=== PATIENT | female | born 1945 | race Two or more races ===

== ENCOUNTER → 2017-11-03 06:42 | Outpatient (CLI) | payer OTHER | END | disposition home or self-care (01) | LOC: LAB 06:42 | DX: N39.0 Urinary tract infection, site not specified (principal); M19.90 Unspecified osteoarthritis, unspecified site; M06.4 Inflammatory polyarthropathy ==

== ENCOUNTER 2017-11-03 13:45 | Outpatient (CLI) | payer OTHER | END 2017-11-03 13:51 | disposition home or self-care (01) | LOC: NUCLEAR 13:45 | DX: M81.0 Age-related osteoporosis without current pathological fracture (principal) ==

== ENCOUNTER → 2017-11-07 13:41 | Outpatient (CLI) | payer OTHER | END | disposition home or self-care (01) | LOC: LAB 13:41 | DX: R10.2 Pelvic and perineal pain (principal); Z51.81 Encounter for therapeutic drug level monitoring ==

== ENCOUNTER 2017-11-08 09:50 | Outpatient (CLI) | payer OTHER | END 2017-11-08 10:07 | disposition home or self-care (01) | LOC: TOM 09:50 | DX: R10.84 Generalized abdominal pain (principal); K57.30 Diverticulosis of large intestine without perforation or abscess without bleeding | CPT/HCPCS: 74177; Q9965 ==

== ENCOUNTER → 2017-11-15 | Outpatient (CLI) | payer OTHER | END | disposition home or self-care (01) | LOC: MAMO-SONO 12:30 | DX: Z12.31 Encounter for screening mammogram for malignant neoplasm of breast (principal); Z87.898 Personal history of other specified conditions; N60.11 Diffuse cystic mastopathy of right breast; N60.12 Diffuse cystic mastopathy of left breast ==

== ENCOUNTER 2017-11-25 10:31 | Outpatient (CLI) | payer OTHER | END 2017-11-25 15:56 | disposition home or self-care (01) | LOC: SONOGRAMA 10:31 | DX: R10.2 Pelvic and perineal pain (principal) ==

== ENCOUNTER → 2017-11-29 06:43 | Outpatient (CLI) | payer OTHER | END | disposition home or self-care (01) | LOC: LAB 06:43 | DX: M81.0 Age-related osteoporosis without current pathological fracture (principal) ==

== ENCOUNTER 2017-12-17 13:10 | Emergency (ER) | payer OTHER ==
[~2017-12-17] VITALS: Ht 149.9 cm; Wt 71.7 kg
[2017-12-17] MEDS ORDERED: OXYCODON-ACETA1 EACH (13:48)
[2017-12-17] MEDS ORDERED: SYNTHROID88 MCG (13:48)
[2017-12-17] MEDS ORDERED: HYZAAR 100-251 EACH (13:48)
[2017-12-17] MEDS ORDERED: TRAMADOL HCL50 MG (13:49)
[2017-12-17] MEDS ORDERED: GABAPENTIN800 MG (13:49)
== END 2017-12-17 17:43 | disposition home or self-care (01) ==
LOC: ER 13:10
DX: K29.60 Other gastritis without bleeding (principal); T37.5X5A Adverse effect of antiviral drugs, initial encounter; T40.4X5A Adverse effect of other synthetic narcotics, initial encounter; T39.1X5A Adverse effect of 4-Aminophenol derivatives, initial encounter; T42.6X5A Adverse effect of other antiepileptic and sedative-hypnotic drugs, initial encounter; Y92.89 Other specified places as the place of occurrence of the external cause

== ENCOUNTER 2018-01-16 08:12 | Day surgery (SDC) | payer OTHER ==
[~2018-01-16 08:12] MED LIST: GABAPENTIN800 MG; HYZAAR 100-251 EACH; OXYCODON-ACETA1 EACH; SYNTHROID88 MCG; TRAMADOL HCL50 MG
[2018-01-16] MEDS ORDERED: NAPROXEN SODIU550 M1 PO (13:38)
== END 2018-01-16 17:05 | disposition home or self-care (01) ==
LOC: CIR.AMB 08:12
DX: N84.0 Polyp of corpus uteri (principal)

== ENCOUNTER → 2019-03-23 | Outpatient (CLI) | payer OTHER ==
[~2019-03-23] MED LIST changes: +NAPROXEN SODIU550 M1 PO
== END | disposition home or self-care (01) ==
LOC: SONOGRAMA 11:44
DX: M12.861 Other specific arthropathies, not elsewhere classified, right knee (principal); M12.862 Other specific arthropathies, not elsewhere classified, left knee

== ENCOUNTER 2019-03-28 06:46 | Outpatient (CLI) | payer OTHER | END 2019-03-28 15:00 | disposition home or self-care (01) | LOC: LAB 06:46 | DX: E78.2 Mixed hyperlipidemia (principal); I10 Essential (primary) hypertension; E11.9 Type 2 diabetes mellitus without complications; E03.8 Other specified hypothyroidism; M81.0 Age-related osteoporosis without current pathological fracture ==

== ENCOUNTER 2019-04-03 15:27 | Outpatient (CLI) | payer OTHER | END 2019-04-03 15:30 | disposition home or self-care (01) | LOC: LAB 15:27 | DX: J11.1 Influenza due to unidentified influenza virus with other respiratory manifestations (principal); D64.0 Hereditary sideroblastic anemia ==

== ENCOUNTER → 2019-07-05 09:25 | Outpatient (CLI) | payer OTHER | END | disposition home or self-care (01) | LOC: RAD 09:25 | DX: M12.88 Other specific arthropathies, not elsewhere classified, other specified site (principal) ==

== ENCOUNTER 2019-07-06 07:12 | Outpatient (CLI) | payer OTHER | END 2019-07-06 07:25 | disposition home or self-care (01) | LOC: LAB 07:12 | DX: I10 Essential (primary) hypertension (principal); E11.9 Type 2 diabetes mellitus without complications; E03.8 Other specified hypothyroidism; E78.2 Mixed hyperlipidemia ==

== ENCOUNTER 2019-10-23 08:46 | Outpatient (CLI) | payer OTHER | END 2019-10-23 08:55 | disposition home or self-care (01) | LOC: NUCLEAR 08:46 | PROVIDERS: ATTEND Internal Medicine Cardiovascular Disease | DX: I73.9 Peripheral vascular disease, unspecified (principal) ==

== ENCOUNTER 2019-10-24 09:00 | Outpatient (CLI) | payer OTHER | END 2019-10-24 11:44 | disposition home or self-care (01) | LOC: NUCLEAR 09:00 | PROVIDERS: ATTEND Internal Medicine Cardiovascular Disease | DX: I87.2 Venous insufficiency (chronic) (peripheral) (principal) ==

== ENCOUNTER 2019-11-13 06:58 | Outpatient (CLI) | payer OTHER | END 2019-11-13 07:03 | disposition home or self-care (01) | LOC: LAB 06:58 | PROVIDERS: ATTEND Internal Medicine Rheumatology | DX: E11.9 Type 2 diabetes mellitus without complications (principal); I10 Essential (primary) hypertension; E78.01 Familial hypercholesterolemia; E03.8 Other specified hypothyroidism ==

== ENCOUNTER → 2020-01-16 | Outpatient (CLI) | payer OTHER | END | disposition home or self-care (01) | LOC: RAD 09:46 | PROVIDERS: ATTEND Internal Medicine Cardiovascular Disease | DX: M77.32 Calcaneal spur, left foot (principal); M77.31 Calcaneal spur, right foot; M12.871 Other specific arthropathies, not elsewhere classified, right ankle and foot; M12.872 Other specific arthropathies, not elsewhere classified, left ankle and foot ==

== ENCOUNTER 2020-01-28 09:04 | Outpatient (CLI) | payer OTHER | END 2020-01-28 09:07 | disposition home or self-care (01) | LOC: RAD 09:04 | PROVIDERS: ATTEND General Practice | DX: R05 Cough (principal) ==

== ENCOUNTER 2021-01-09 08:00 | Outpatient (CLI) | payer OTHER | END 2021-01-09 08:30 | disposition home or self-care (01) | LOC: PPH VACUNA 08:00 | PROVIDERS: ATTEND Emergency Medicine Pediatric Emergency Medicine | DX: Z23 Encounter for immunization (principal) ==

== ENCOUNTER 2021-02-03 08:07 | Outpatient (CLI) | payer OTHER | END 2021-02-03 08:15 | disposition home or self-care (01) | LOC: TOM 08:07 | PROVIDERS: ATTEND Internal Medicine Cardiovascular Disease | DX: G93.89 Other specified disorders of brain (principal); R51.0 Headache with orthostatic component, not elsewhere classified; H54.8 Legal blindness, as defined in USA | CPT/HCPCS: 70470; Q9965 ==

== ENCOUNTER 2022-04-06 12:18 | Outpatient (CLI) | payer OTHER | END 2022-04-06 12:30 | disposition home or self-care (01) | LOC: MAMO-SONO 12:18 | PROVIDERS: ATTEND Obstetrics & Gynecology Gynecology | DX: N60.11 Diffuse cystic mastopathy of right breast (principal); N60.12 Diffuse cystic mastopathy of left breast ==

== ENCOUNTER 2022-07-30 07:17 | Outpatient (CLI) | payer OTHER | END 2022-07-30 07:23 | disposition home or self-care (01) | LOC: LAB 07:17 | PROVIDERS: ATTEND Internal Medicine Gastroenterology | DX: K21.00 Gastro-esophageal reflux disease with esophagitis, without bleeding (principal); K57.30 Diverticulosis of large intestine without perforation or abscess without bleeding; Z86.010 Personal history of colon polyps; R74.01 Elevation of levels of liver transaminase levels ==

== ENCOUNTER 2022-08-20 06:56 | Outpatient (CLI) | payer OTHER | END 2022-08-20 06:59 | disposition home or self-care (01) | LOC: LAB 06:56 | PROVIDERS: ATTEND Internal Medicine Cardiovascular Disease | DX: I10 Essential (primary) hypertension (principal); E11.9 Type 2 diabetes mellitus without complications; E03.9 Hypothyroidism, unspecified; E78.2 Mixed hyperlipidemia ==

== ENCOUNTER 2022-09-02 09:51 | Outpatient (CLI) | payer OTHER | END 2022-09-02 09:55 | disposition home or self-care (01) | LOC: RAD 09:51 | PROVIDERS: ATTEND Orthopaedic Surgery | DX: M25.561 Pain in right knee (principal); M25.562 Pain in left knee ==

== ENCOUNTER 2022-10-15 08:10 | Outpatient (CLI) | payer OTHER | END 2022-10-15 08:13 | disposition home or self-care (01) | LOC: LAB 08:10 | PROVIDERS: ATTEND Obstetrics & Gynecology Gynecology | DX: N39.0 Urinary tract infection, site not specified (principal); E55.9 Vitamin D deficiency, unspecified ==

== ENCOUNTER 2022-11-02 05:56 | Day surgery (SDC) | payer OTHER ==
[~2022-11-02] VITALS: Ht 149.9 cm; Wt 70.8 kg
[~2022-11-02 05:56] MED LIST changes: +HORIZANT300 MG PO
[2022-11-02] MEDS ORDERED: PERCOCET 5-3251 EACH PO (07:58)
[2022-11-02] MEDS ORDERED: NABUMETONE750 MG PO (07:59)
== END 2022-11-02 15:50 | disposition home or self-care (01) ==
LOC: CIR.AMB 05:56
PROVIDERS: ATTEND Orthopaedic Surgery
DX: S83.212A Bucket-handle tear of medial meniscus, current injury, left knee, initial encounter (principal); S83.252A Bucket-handle tear of lateral meniscus, current injury, left knee, initial encounter; M67.52 Plica syndrome, left knee; M22.42 Chondromalacia patellae, left knee; I10 Essential (primary) hypertension; Z20.822 Contact with and (suspected) exposure to COVID-19

== ENCOUNTER 2022-11-26 11:21 | Outpatient (CLI) | payer OTHER ==
[~2022-11-26 11:21] MED LIST changes: +NABUMETONE750 MG PO; +PERCOCET 5-3251 EACH PO
== END 2022-11-26 11:31 | disposition home or self-care (01) ==
LOC: PPH VACUNA 11:21
PROVIDERS: ATTEND Emergency Medicine Pediatric Emergency Medicine
DX: Z23 Encounter for immunization (principal)

== ENCOUNTER 2022-12-15 10:28 | Outpatient (CLI) | payer OTHER | END 2022-12-15 10:29 | disposition home or self-care (01) | LOC: SONOGRAMA 10:28 | PROVIDERS: ATTEND Surgery | DX: N60.11 Diffuse cystic mastopathy of right breast (principal) ==

== ENCOUNTER 2023-02-16 07:32 | Outpatient (CLI) | payer OTHER | END 2023-02-16 07:34 | disposition home or self-care (01) | LOC: SONOGRAMA 07:32 | PROVIDERS: ATTEND Internal Medicine Gastroenterology | DX: R10.11 Right upper quadrant pain (principal) ==

== ENCOUNTER → 2023-03-03 06:57 | Outpatient (CLI) | payer OTHER | END | disposition home or self-care (01) | LOC: SONOGRAMA 06:57 | PROVIDERS: ATTEND Internal Medicine Cardiovascular Disease | DX: R10.9 Unspecified abdominal pain (principal); N39.0 Urinary tract infection, site not specified ==